=== PATIENT | male | born 1955 | race African-American/Black ===

== ENCOUNTER 2024-11-28 17:13 | Emergency (ER) | payer MEDICARE, MEDICAID ==
[~2024-11-28] VITALS: Ht 188 cm; Wt 105.0 kg
[2024-11-28 17:21] VITALS: TEMP 97.5; O2SAT 97
[2024-11-28] MEDS ORDERED: IBUPROFEN 600MG TABLET PO ONE (18:30)
[2024-11-28] MEDS: IBUPROFEN 600MG TABLET PO NR (20:32)
[2024-11-28 22:44] VITALS: BP 152/75; PULSE 63; RESP 19; O2SAT 97
== END 2024-11-28 22:46 | disposition home or self-care (01) ==
LOC: ER 17:13
DX: S62.637A Displaced fracture of distal phalanx of left little finger, initial encounter for closed fracture (principal); I10 Essential (primary) hypertension; E11.9 Type 2 diabetes mellitus without complications; Z79.899 Other long term (current) drug therapy; W19.XXXA Unspecified fall, initial encounter; Y93.89 Activity, other specified; Y92.89 Other specified places as the place of occurrence of the external cause; Y99.8 Other external cause status
CPT/HCPCS: 29125; 73130; 99283